=== PATIENT | female | born 1975 | race Caucasian/White ===

== ENCOUNTER → 2017-12-27 | Outpatient (CLI) | payer BC ==
[~2017-12-27] MED LIST: CLARITIN10 MG PO; FOLIC ACID1 MG PO; LORATADINE10 MG PO; LOVENOX 3030 MG/0.3 SQ; NASONEX SPRAY; PRENATAL1 TA1 PO
== END ==
LOC: MC.RAD 09:40
DX: Z12.31 Encounter for screening mammogram for malignant neoplasm of breast (principal); Z95.0 Presence of cardiac pacemaker

== ENCOUNTER → 2018-01-21 | Outpatient (CLI) | payer BC | LOC: COL.RAD 12:45 | DX: I25.10 Atherosclerotic heart disease of native coronary artery without angina pectoris (principal); M54.2 Cervicalgia ==

== ENCOUNTER → 2019-11-10 | Outpatient (CLI) | payer BC | LOC: MC.RAD 08:37 | DX: Z12.31 Encounter for screening mammogram for malignant neoplasm of breast (principal); Z95.0 Presence of cardiac pacemaker ==

== ENCOUNTER → 2021-12-26 | Outpatient (CLI) | payer BC | LOC: MC.RAD 08:30 | DX: Z12.31 Encounter for screening mammogram for malignant neoplasm of breast (principal); N64.89 Other specified disorders of breast ==

== ENCOUNTER → 2021-12-30 | Outpatient (CLI) | payer BC | LOC: MC.RAD 08:18 | DX: N60.02 Solitary cyst of left breast (principal); N64.89 Other specified disorders of breast ==